=== PATIENT | male | born 2000 | race African-American/Black ===

== ENCOUNTER 2021-11-14 16:47 | Emergency (ER) | payer OTHER, SELFPAY ==
[2021-11-14 16:56] VITALS: BP 137/69; PULSE 76; RESP 16; TEMP 36.6; O2SAT 100
--- NOTE | 2021-11-14 17:13 | ED.GENADULT ---
HPI - General Adult General Chief complaint: Skin/Abscess/Foreign Body Stated complaint: Rash in groin area. Source: patient Mode of arrival: ambulatory Limitations: no limitations History of Present Illness HPI narrative: Pt presents for evaluation of lesions x 2 to penile shaft/scrotum for the past few months. He denies any significant pain. He states that the lesions are pruritic only to touch. He denies any testicular pain, urethral discharge or urinary symptoms. He identified as bisexual and states that the majority of sexual encounters have been limited to oral intercourse. States he was checked for STIs several years ago and all testing was negative. He has not had any new sexual partner since that time. Related Data Allergies Allergy/AdvReac Type Severity Reaction Status Date / Time Penicillins Allergy Unknown Hives Verified 11/14/21 16:54 Review of Systems Review of Systems: CONSTITUTIONAL: Denies fever, chills, or sweats. EYES: Denies visual changes, redness, or discharge. ENT: Denies rhinorrhea, congestion, sore throat, or otalgia. CARDIOVASCULAR: Denies chest pain, palpitations, or edema. RESPIRATORY: Denies cough or dyspnea. GASTROINTESTINAL: Denies abdominal pain, nausea, vomiting, or diarrhea. GENITOURINARY: Denies dysuria or hematuria. SKIN: Reports lesions x 2 to penile shaft and scrotum with associated pruritis. MUSCULOSKELETAL: Denies back pain, joint pain, or myalgia. NEUROLOGIC: Denies headache, numbness, dizziness, or weakness. PSYCHIATRIC: Denies anxiety or depression. [facility] Past Medical History Medical History No significant past medical history Surgical History Surgical History History of adenoidectomy History of tonsillectomy [place] teeth extracted Family History Family History Father Hypertension Family history of pancreatic cancer Mother Hypertension Carcinoma of colon Social History Social History Smoking status: Current every day smoker Tobacco type: e-cigarettes/vaping Second hand tobacco smoke exposure: No Alcohol intake: never Substance use: never Substance use type: does not use Gender identity (if verbalized by the patient): Male Sexual Orientation (if Verbalized by the Patient): Bisexual Spiritual care concerns: No Exam Narrative: GENERAL: Well-appearing, well-nourished, and in no acute distress. HEAD: Normocephalic, atraumatic. EYES: PERRLA and EOMI. ENT: Nares clear, no rhinorrhea or epistaxis. Mucous membranes moist. Oropharynx without tonsillar hypertrophy exudate or other lesions. Bilateral TMs pearly [place] nonbulging NECK: Supple. No adenopathy or masses. No carotid bruits or JVD CHEST: Clear to auscultation. No respiratory distress. No wheezes rales or rhonchi HEART: Regular rate and rhythm. No murmur heard. Normal peripheral pulses. ABDOMEN: Soft, nontender, nondistended, normal active bowel sounds. EXTREMITIES: Normal range of motion. No edema. SKIN: (2)hyperpigmented raised lesions to base of penile shaft/scrotum that are approximately 2 mm in size. Warm, dry, no rash. NEURO: No focal deficits. Alert and oriented x3. PSYCH: Normal mood and affect. Course Course Emergency Course: This is a 21-year-old male who presented with complaints of lesions to base of penile shaft and scrotum. 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 Discussed treatment options and patient elected to receive prescription for Aldara. Advised he pursue comprehensive STI examination and speak with his primary care provider to determine whether Gardasil vaccine may be beneficial. Advised on safer sex practices. He may want to consider starting PreP. He should follow up outpatient for further evaluation and treatment and return for wo
== END 2021-11-14 17:35 | disposition home or self-care (01) ==
PROVIDERS: Emergency Provider Nurse Practitioner; PCP Family Medicine
DX: A63.0 Anogenital (venereal) warts (principal); F17.290 Nicotine dependence, other tobacco product, uncomplicated
CPT/HCPCS: 99213; G0463

== ENCOUNTER 2022-12-09 09:20 | Emergency (ER) | payer OTHER, SELFPAY ==
--- NOTE | 2022-12-09 09:25 | ED.URI ---
HPI - URI/Sore Throat General Chief Complaint: Upper Respiratory Infection Stated Complaint: SORE THROAT/CONGESTION/BODY ACHES Source: patient and RN notes reviewed History of Present Illness HPI Narrative: 22-year-old male presents to urgent care with complaints of sore throat and bilateral ear pain. Patient states he has been having these symptoms since. Patient reports associated body aches intermittently and chest congestion. Denies any headache, chest pain, sore throat, vomiting, or abdominal pain. Patient has taken DayQuil at home with minimal relief. Some parts of this dictation were generated by voice recognition software and may contain typographical and/or grammatical inaccuracies. Related Data Home Medications Medication Instructions Recorded Confirmed No Home Medications 07/02/22 07/02/22 Allergies Allergy/AdvReac Type Severity Reaction Status Date / Time Penicillins Allergy Unknown Hives Verified 07/02/22 09:57 Review of Systems Review of Systems: Pertinent positives and pertinent negatives per HPI. [facility] Past Medical History Medical History (Updated 12/09/22 @ 10:01 by Ana Melvin, [employer]) No significant past medical history Surgical History Surgical History History of adenoidectomy History of tonsillectomy [place] teeth extracted Family History Family History Father Hypertension Family history of pancreatic cancer Mother Hypertension Carcinoma of colon Social History Social History Smoking status: Current every day smoker Tobacco type: e-cigarettes/vaping Second hand tobacco smoke exposure: No Alcohol intake: never Substance use: never Substance use type: does not use Living arrangements: with roommate(s) Occupation/Education: student Gender identity (if verbalized by the patient): Male Sexual Orientation (if Verbalized by the Patient): Bisexual Spiritual care concerns: No Comments At the time of my signature, I reviewed and agree with the nursing past medical, surgical, social, and family history. There is no relevant family history pertinent to the patient complaint. Exam Narrative: GENERAL: This is a well-nourished, well-developed patient, in no apparent distress. HEAD: normocephalic, atraumatic. EYES: PERRL. Sclera clear/white. Vision is grossly intact. EARS: External ears normal, auditory canals clear and without drainage, TMs normal without perforation. Hearing grossly intact. NOSE: External nose normal with no obvious nasal discharge, nares without redness, no rhinorrhea. THROAT: Mucous membranes moist, posterior pharynx Erythemic. No exudate noted. NECK: Neck supple, non-tender without lymphadenopathy, masses or thyromegaly. CARDIOVASCULAR: Regular rate and rhythm without murmurs, gallops, or rubs. RESPIRATORY: Clear to auscultation. Breath sounds equal bilaterally. No wheezes, rales, or rhonchi. GASTROINTESTINAL: Abdomen soft, non-tender, nondistended. Bowel sounds are active. No hepato-splenomegaly, or palpable masses. No guarding. SKIN: warm, intact with no suspicious lesions or rash, good texture and turgor. NEURO: awake, alert, and oriented to person, place and time. There were no obvious focal neurologic abnormalities. Course Course Level of Care: Express Care Visit Vital Signs Vital signs: Vital Signs Temperature 98.5 F 12/09/22 09:33 Pulse Rate 77 12/09/22 09:33 Respiratory Rate 16 12/09/22 09:33 Blood Pressure 115/76 12/09/22 09:33 Pulse Oximetry 100 12/09/22 09:33 Oxygen Delivery Room Air 12/09/22 09:33 Temperature 98.5 F 12/09/22 09:33 Pulse Rate 77 12/09/22 09:33 Respiratory Rate 16 12/09/22 09:33 Blood Pressure 115/76 12/09/22 09:33 Pulse Oximetry 100 12/09/22 09:33 Oxygen Delivery Room Air 12/09/22 09:
[2022-12-09 09:33] VITALS: BP 115/76; PULSE 77; RESP 16; TEMP 36.9; O2SAT 100
== END 2022-12-09 10:08 | disposition home or self-care (01) ==
PROVIDERS: Emergency Provider Nurse Practitioner Family; PCP Family Medicine
DX: J02.9 Acute pharyngitis, unspecified (principal); F17.290 Nicotine dependence, other tobacco product, uncomplicated
CPT/HCPCS: 87081; 87880; 99213; G0463